=== PATIENT | male | born 1990 | race Caucasian/White ===

== ENCOUNTER 2023-11-22 00:28 | Emergency (ER) | payer MEDICAID ==
[~2023-11-22] VITALS: Ht 182.9 cm; Wt 66.2 kg
[2023-11-22 01:05] VITALS: BP_SYST 145; PULSE 96; RESP 19; TEMP 97.6; O2SAT 95
[2023-11-22] MEDS ORDERED: DOXY100C5 PO (03:06)
[2023-11-22 03:11] VITALS: BP_SYST 134; PULSE 87; RESP 19; TEMP 97.3; O2SAT 98
== END 2023-11-22 03:09 | disposition home or self-care (01) ==
LOC: SED 00:28
DX: S60.412A Abrasion of right middle finger, initial encounter (principal); S69.81XA Other specified injuries of right wrist, hand and finger(s), initial encounter; F19.10 Other psychoactive substance abuse, uncomplicated; Z88.1 Allergy status to other antibiotic agents; V19.88XA Pedal cyclist (driver) (passenger) injured in other specified transport accidents, initial encounter; Y93.55 Activity, bike riding; Y92.89 Other specified places as the place of occurrence of the external cause; Y99.8 Other external cause status
CPT/HCPCS: 99283